=== PATIENT | male | born 1935 | race Caucasian/White ===

== ENCOUNTER 2018-02-07 07:03 | Inpatient (IN) ==
--- NOTE | 2018-02-07 07:13 | Emergency Department Note ---
Disposition Clinical Impression: Elevated INR, Generalized weakness Community acquired pneumonia Qualifiers: Laterality: right Lung location: upper lobe of lung Qualified Code(s): J18.1 - Lobar pneumonia, unspecified organism Disposition: Admitted As Inpatient Condition: Fair Referrals: Chance Vallejo DO [Primary Care Provider] - Time of Disposition: 09:27 General Adult HPI - General Stated complaint: Fever, General illness Time Seen by Provider: 02/07/18 07:10 Source: patient, EMS Limitations: no limitations Nursing Notes Reviewed: Yes Vital Signs Reviewed: Yes - History of Present Illness HPI Narrative: 82-year-old male presents from home via EMS for evaluation of nausea, decreased by mouth intake, generalized weakness. Onset one week ago with mild weakness which has been progressive. For the past 2-3 days, he has had nausea and has been unable to tolerate any by mouth intake. Additionally, during his last 2-3 days, he has had loose stools. 2-3 episodes per day with blood which ranges from spotting on the toilet tissue to 'filling to bowel.' He has no abdominal pain with his bowel movements. He has no abdominal pain when he is not vomiting. He denies fever. He correlates the onset of his symptoms with the administration of a hepatitis A vaccine. PMH: Lymphoma. 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 Enlarged spleen. Hx CAD with ACS s/p remote stent. No pulmonary history. ROS: Positive: As above Negative: Fever, chills, chest pain, palpitations, dyspnea, diaphoresis, headache, lightheadedness, numbness/tingling/weakness. Pain Scale: 0 - Related Data Home Medications Medication Instructions Recorded Confirmed Losartan/HCTZ [Hyzaar 50-12.5 1 tab PO DAILY 10/09/15 02/17/17 Tablet] Saw [place] 500 mg PO DAILY 10/09/15 02/17/17 Previous Rx's Medication Instructions Recorded Warfarin [Coumadin] 1 tab PO 1800 #30 tablet 07/16/16 Ferrous Sulfate [Iron] 1 tab PO BID #60 tablet 08/23/16 Folic Acid 1 tab PO DAILY #90 tablet 08/23/16 Haemophilus B Polysacch Vacc 10 mcg IM ONCE #1 mls 08/27/16 [ActHIB Vaccine (w diluent)] Meningo P Vac A,C,Y,W-135 Diph 0.5 ml IM AD #1 vial 08/27/16 [Menactra] N.meningitidis B,Lipid Fhbp Rc 120 mcg IM AD #3 mls 08/27/16 [Trumenba] Allergies Allergy/AdvReac Type Severity Reaction Status Date / Time iodine Allergy blisters Verified 08/20/17 11:01 Penicillins Allergy unknown Verified 08/20/17 11:01 All systems ED: reviewed and negative except as stated. Review of Systems: As Per HPI Past Medical History - Past Medical History Medical history: Reports: cancer Surgical history: Reports: angioplasty/stent, cholecystectomy, knee replacement , other Psychiatric history: Reports: no psych history - Social History Smoking Status: Former smoker Smokeless Tobacco Status: No Alcohol use: Reports: none Drug use: Reports: none Physical Exam Vital Signs Reviewed General: Patient is alert, oriented. He appears pale and tired but otherwise appears younger than stated age. Head: atraumatic, normocephalic Eye: normal appearance, PERRL, no scleral icterus, no conjunctival injection ENT: mucous membranes moist, normal external ear exam Neck: normal inspection, trachea midline, full ROM Chest: normal inspection, symmetric chest rise Respiratory: Good respiratory effort. Bilateral breath sounds are clear without wheezing, crackles, or rhonchi. Cardiovascular: Regular rate and rhythm. No clicks, rubs, gallops, or murmors. Normal heart sounds. Abdomen: Bowel sounds present normoactive x-4 quadrants. Abdomen is soft, nondistended, and nontender. No guarding or rebound. No organomegaly noted. Rectal exam: Telephone Order Clerk Room Service present appropriate rectal tone. No evidence of hemorrhoid. No gross blood on glove fingertip. FOBT submitted. Musculoskeletal: Spontaneously moving all extremities. Skin: warm, dry, intact. Neuro: Alert and oriented x4. Sensation light touch intact. Psych: Patient's affect is appropriate for situation. - General Limitations: no limitations General appearance: alert, in no apparent distress Course Course Narrative: Chest x-ray concerning for right-sided pneumonia. Serum hematology shows mild anemia which is the patient's baseline. No leukocytosis or leukocytopenia. Serum chemistry does show slight elevation in troponin of 0.04. This is in a setting of mild chronic kidney disease; patient's creatinine no elevators at his baseline. Clinically suspect a component of demand ischemia. No ischemic changes on EKG. Patient has no chest pain. We will begin empiric ceftriaxone and azithromycin. Patient's INR is slightly supratherapeutic. FOBT is negative. Hemoglobin is at his baseline. I discussed the above with the admitting hospitalist, Dr. Villarreal , who agrees to accept the patient for community-acquired pneumonia, elevated INR, generalized weakness I discussed the above extensively with the patient, his son, and daughter at bedside. I spent approximately 15-20 minutes discussing multiple aspects of the patient's emergency department evaluation and answered all of their questions with explanations when appropriate. EKG dated 02/07/18 at 07:43 interpreted as sinus rhythm with rate of 89. SD 167 , QRS 101, QTC 393. Normal axis. Flattened T-wave in lead V2 otherwise nonspecific ST-T changes. Compared to previous EKG dated 11/17/2015 showing no acute ischemic changes comparison. Chest X-Ray 02/07/18 07:33 IMPRESSION: 1. Right infrahilar opacity potentially representing pneumonia, mass, or hilar lymphadenopathy. Consider further evaluation with a contrast-enhanced chest CT. 2. Airspace opacities in the mid to lower left lung, potentially pneumonia, asymmetric edema, and/or atelectasis. 3. Minimal right basilar atelectasis. 4. Pulmonary vascular congestion and/or chronic interstitial change. D/ / Siddhartha Yuan MD / Siddhartha Yuan MD Interpreting Provider: Siddhartha Yuan MD Vital Signs Temperature 99.1 F 02/07/18 07:05 Pulse Rate 82 02/07/18 07:05 Respiratory Rate 20 02/07/18 07:05 Blood Pressure 170/78 02/07/18 07:05 O2 Sat by Pulse Oximetry 98 02/07/18 07:05 Temperature 99.1 F 02/07/18 07:05 Pulse Rate 82 02/07/18 07:05 Respiratory Rate 20 02/07/18 07:05 Blood Pressure 170/78 02/07/18 07:05 O2 Sat by Pulse Oximetry 98 02/07/18 07:05 Oxygen Delivery Oxygen Delivery Room Air Medical Decision Making - Lab Data Result diagrams: 02/07/18 07:56 06/30/18 07:56 Lab Results 02/07/18 02/07/18 02/07/18 Range/Units 07:55 07:56 07:56 WBC (4.3-11.1) K/mcL RBC (4.19-5.50) M/mcL Hgb (12.9-16.9) g/dL Hct (37.5-50.1) % MCV (83.0-100.0) fL MCH (28.0-33.3) pg MCHC (31.6-35.5) g/dL RDW (11.5-14.5) % Plt Count (140-400) K/mcL MPV (9.4-12.4) fL Immature Gran % (0-4) % Seg Neutrophils % % Lymphocytes % % Monocytes % % Eosinophils % % Basophils % % Neutrophils # (1.6-8.9) K/mcL Lymphocytes # (0.6-4.6) K/mcL Monocytes # (0.0-1.3) K/mcL Eosinophils # (0.0-0.6) K/mcL Basophils # (0.0-0.2) K/mcL PT 42.9 H (9.4-12.1) Seconds INR 3.8 APTT 33.5 (26.0-36.0) Seconds Sodium 137 (136-145) mEq/L Potassium 3.9 (3.5-5.1) mEq/L Chloride 106 (98-107) mEq/L Carbon Dioxide 20 L (23-29) mEq/L BUN 33 H (8-23) mg/dL Creatinine 1.69 H (0.70-1.30) mg/dL Est GFR ( Amer) 47 L (> 60) Est GFR (Non-Af Amer) 39 L (> 60) BUN/Creatinine Ratio 20 (6-26) Glucose 169 H (70-105) mg/dL Calculated Osmolality 295 (280-300) Calcium 9.0 (8.6-10.3) mg/dL Phosphorus 2.5 L (2.7-4.5) mg/dL Magnesium 1.9 (1.6-2.6) mg/dL Total Bilirubin 0.9 (0.3-1.0) mg/dL Direct Bilirubin 0.3 H (0.0-0.2) mg/dL Indirect Bilirubin 0.6 (0.0-1.2) mg/dL AST 17 (13-39) Units/L ALT 24 (7-52) Units/L Alkaline Phosphatase 67 (34-104) Units/L Troponin I 0.04 H* (< 0.04) ng/mL Serum Total Protein 6.5 (6.4-8.9) g/dL Albumin 3.9 (3.5-5.7) g/dL Globulin 2.6 (2.4-3.5) g/dL Albumin/Globulin Ratio 1.5 (1.1-2.2) Urine Color (Yellow) Urine Clarity (Clear) Urine pH (5.0-8.0) pH Units Ur Specific [place] (1.010-1.025) Urine Protein (Neg-Trace) mg/dL Urine Glucose (UA) (Normal) mg/dL Urine Ketones (Negative) mg/dL Urine Blood (Negative) Urine Nitrite (Negative) Urine Bilirubin (Negative) Urine Urobilinogen (Normal) mg/dL Ur Leukocyte Esterase (Negative) Urine Microscopic RBC (0-3) per hpf Urine Microscopic WBC (0-3) per hpf Ur Squamous Epith Cells (None-Few) per lpf Urine Bacteria (None-Few) per hpf Hyaline Casts (None-Few) per lpf Ur Culture Indicated? (NO) Stool Occult Blood Negative (Negative) 02/07/18 02/07/18 Range/Units 07:56 08:07 WBC 5.2 (4.3-11.1) K/mcL RBC 4.05 L (4.19-5.50) M/mcL Hgb 11.8 L (12.9-16.9) g/dL Hct 35.0 L (37.5-50.1) % MCV 86.4 (83.0-100.0) fL MCH 29.1 (28.0-33.3) pg MCHC 33.7 (31.6-35.5) g/dL RDW 13.2 (11.5-14.5) % Plt Count 89 L (140-400) K/mcL MPV 9.2 L (9.4-12.4) fL Immature Gran % 0.8 (0-4) % Seg Neutrophils % 57.8 % Lymphocytes % 34.3 % Monocytes % 6.9 % Eosinophils % 0.0 % Basophils % 0.2 % Neutrophils # 3.0 (1.6-8.9) K/mcL Lymphocytes # 1.8 (0.6-4.6) K/mcL Monocytes # 0.4 (0.0-1.3) K/mcL Eosinophils # 0.0 (0.0-0.6) K/mcL Basophils # 0.0 (0.0-0.2) K/mcL PT (9.4-12.1) Seconds INR APTT (26.0-36.0) Seconds Sodium (136-145) mEq/L Potassium (3.5-5.1) mEq/L Chloride (98-107) mEq/L Carbon Dioxide (23-29) mEq/L BUN (8-23) mg/dL Creatinine (0.70-1.30) mg/dL Est GFR ( Amer) (> 60) Est GFR (Non-Af Amer) (> 60) BUN/Creatinine Ratio (6-26) Glucose (70-105) mg/dL Calculated Osmolality (280-300) Calcium (8.6-10.3) mg/dL Phosphorus (2.7-4.5) mg/dL Magnesium (1.6-2.6) mg/dL Total Bilirubin (0.3-1.0) mg/dL Direct Bilirubin (0.0-0.2) mg/dL Indirect Bilirubin (0.0-1.2) mg/dL AST (13-39) Units/L ALT (7-52) Units/L Alkaline Phosphatase (34-104) Units/L Troponin I (< 0.04) ng/mL Serum Total Protein (6.4-8.9) g/dL Albumin (3.5-5.7) g/dL Globulin (2.4-3.5) g/dL Albumin/Globulin Ratio (1.1-2.2) Urine Color Yellow (Yellow) Urine Clarity Clear (Clear) Urine pH 6.0 (5.0-8.0) pH Units Ur Specific [place] 1.023 (1.010-1.025) Urine Protein 30 H (Neg-Trace) mg/dL Urine Glucose (UA) Normal (Normal) mg/dL Urine Ketones Negative (Negative) mg/dL Urine Blood Negative (Negative) Urine Nitrite Negative (Negative) Urine Bilirubin Negative (Negative) Urine Urobilinogen Normal (Normal) mg/dL Ur Leukocyte Esterase Negative (Negative) Urine Microscopic RBC 3-5 H (0-3) per hpf Urine Microscopic WBC 0-3 (0-3) per hpf Ur Squamous Epith Cells Many H (None-Few) per lpf Urine Bacteria None Seen (None-Few) per hpf Hyaline Casts None Seen (None-Few) per lpf Ur Culture Indicated? NO (NO) Stool Occult Blood (Negative)
[2018-02-07] MEDS ORDERED: 0.9 % Sodium Chloride 1,000 ML IVC ONE (07:32)
[2018-02-07 08:08] LABS: Basophils % 0.2 %; Hemoglobin 11.8 g/dL (12.9-16.9); Immature Granulocytes % 0.8 % (0-4); Lymphocytes # 1.8 K/mcL (0.6-4.6); Lymphocytes % 34.3 %; Mean Corpuscular HGB Conc 33.7 g/dL (31.6-35.5); Mean Corpuscular Hemoglobin 29.1 pg (28.0-33.3); Mean Corpuscular Volume 86.4 fL (83.0-100.0); Mean Platelet Volume 9.2 fL (9.4-12.4); Monocytes # 0.4 K/mcL (0.0-1.3); Monocytes % 6.9 %; Red Blood Count 4.05 M/mcL (4.19-5.50); Red Cell Distribution Width 13.2 % (11.5-14.5); Segmented Neutrophils % 57.8 %
[2018-02-07 08:09] LABS: Platelet Count 89 K/mcL (140-400)
[2018-02-07 08:15] LABS: INR 3.8; Prothrombin Time 42.9 Seconds (9.4-12.1)
[2018-02-07 08:18] LABS: Activated Partial Thrombo Time 33.5 Seconds (26.0-36.0)
[2018-02-07 08:20] LABS: Bilirubin,Urine Negative (Negative); Blood,Urine Negative (Negative); Clarity,Urine Clear (Clear); Color,Urine Yellow (Yellow); Glucose,Urine (UA) Normal (Normal); Ketones,Urine Negative (Negative); Leukocyte Esterase,Urine Negative (Negative); Nitrite,Urine Negative (Negative); Protein,Urine 30 mg/dL (Neg-Trace); Specific Gravity,Urine 1.023 (1.010-1.025); Urobilinogen,Urine Normal (Normal)
[2018-02-07 08:22] LABS: Bacteria,Urine None Seen per hpf (None-Few); Hyaline Casts,Urine None Seen per lpf (None-Few); Squamous Epithelial Cell,Urine Many per lpf (None-Few); WBC,Urine 0-3 per hpf (0-3)
[2018-02-07 08:28] LABS: Albumin 3.9 g/dL (3.5-5.7); Albumin/Globulin Ratio 1.5 (1.1-2.2); Bilirubin,Direct 0.3 mg/dL (0.0-0.2); Bilirubin,Indirect 0.6 mg/dL (0.0-1.2); Bilirubin,Total 0.9 mg/dL (0.3-1.0); Globulin 2.6 g/dL (2.4-3.5); Magnesium 1.9 mg/dL (1.6-2.6); Phosphorous 2.5 mg/dL (2.7-4.5); Potassium 3.9 mEq/L (3.5-5.1); Total Protein 6.5 g/dL (6.4-8.9)
[2018-02-07 08:29] LABS: Troponin I 0.04 ng/mL (< 0.04)
--- NOTE | 2018-02-07 09:16 | Emergency Department Note ---
Disposition Clinical Impression: Elevated INR, Generalized weakness Community acquired pneumonia Qualifiers: Laterality: right Lung location: upper lobe of lung Qualified Code(s): J18.1 - Lobar pneumonia, unspecified organism Disposition: Admitted As Inpatient Condition: Fair General Adult HPI - General Chief complaint: ED General Medical Stated complaint: Fever, General illness Time Seen by Provider: 02/07/18 07:10 Source: patient, EMS Limitations: no limitations Nursing Notes Reviewed: Yes Vital Signs Reviewed: Yes - History of Present Illness Pain Scale: 0 - Related Data Home Medications Medication Instructions Recorded Confirmed Losartan/HCTZ [Hyzaar 50-12.5 1 tab PO DAILY 10/09/15 02/17/17 Tablet] Saw [place] 500 mg PO DAILY 10/09/15 02/17/17 Previous Rx's Medication Instructions Recorded Warfarin [Coumadin] 1 tab PO 1800 #30 tablet 07/16/16 Ferrous Sulfate [Iron] 1 tab PO BID #60 tablet 08/23/16 Folic Acid 1 tab PO DAILY #90 tablet 08/23/16 Haemophilus B Polysacch Vacc 10 mcg IM ONCE #1 mls 08/27/16 [ActHIB Vaccine (w diluent)] Meningo P Vac A,C,Y,W-135 Diph 0.5 ml IM AD #1 vial 08/27/16 [Menactra] N.meningitidis B,Lipid Fhbp Rc 120 mcg IM AD #3 mls 08/27/16 [Trumenba] Allergies Allergy/AdvReac Type Severity Reaction Status Date / Time iodine Allergy blisters Verified 08/20/17 11:01 Penicillins Allergy unknown Verified 08/20/17 11:01 Past Medical History - Past Medical History Medical history: Reports: cancer Surgical history: Reports: angioplasty/stent, cholecystectomy, knee replacement , other Psychiatric history: Reports: no psych history - Social History Smoking Status: Former smoker Smokeless Tobacco Status: No Alcohol use: Reports: none Drug use: Reports: none Physical Exam - General Limitations: no limitations General appearance: alert, in no apparent distress Course Vital Signs Temperature 99.1 F 02/07/18 07:05 Pulse Rate 82 02/07/18 07:05 Respiratory Rate 20 02/07/18 07:05 Blood Pressure 170/78 02/07/18 07:05 O2 Sat by Pulse Oximetry 98 02/07/18 07:05 Temperature 99.1 F 02/07/18 07:05 Pulse Rate 82 02/07/18 07:05 Respiratory Rate 20 02/07/18 07:05 Blood Pressure 170/78 02/07/18 07:05 O2 Sat by Pulse Oximetry 98 02/07/18 07:05 Oxygen Delivery Oxygen Delivery Room Air Medical Decision Making - Medical Records Medical records reviewed: Yes I reviewed the patient's medical records. - Lab Data Lab results reviewed: Yes I reviewed the patient's lab results. Result diagrams: 02/07/18 07:56 02/07/18 07:56 Lab Results 02/07/18 02/07/18 02/07/18 Range/Units 07:55 07:56 07:56 WBC (4.3-11.1) K/mcL RBC (4.19-5.50) M/mcL Hgb (12.9-16.9) g/dL Hct (37.5-50.1) % MCV (83.0-100.0) fL MCH (28.0-33.3) pg MCHC (31.6-35.5) g/dL RDW (11.5-14.5) % Plt Count (140-400) K/mcL MPV (9.4-12.4) fL Immature Gran % (0-4) % Seg Neutrophils % % Lymphocytes % % Monocytes % % Eosinophils % % Basophils % % Neutrophils # (1.6-8.9) K/mcL Lymphocytes # (0.6-4.6) K/mcL Monocytes # (0.0-1.3) K/mcL Eosinophils # (0.0-0.6) K/mcL Basophils # (0.0-0.2) K/mcL PT 42.9 H (9.4-12.1) Seconds INR 3.8 APTT 33.5 (26.0-36.0) Seconds Sodium 137 (136-145) mEq/L Potassium 3.9 (3.5-5.1) mEq/L Chloride 106 (98-107) mEq/L Carbon Dioxide 20 L (23-29) mEq/L BUN 33 H (8-23) mg/dL Creatinine 1.69 H (0.70-1.30) mg/dL Est GFR ( Amer) 47 L (> 60) Est GFR (Non-Af Amer) 39 L (> 60) BUN/Creatinine Ratio 20 (6-26) Glucose 169 H (70-105) mg/dL Calculated Osmolality 295 (280-300) Calcium 9.0 (8.6-10.3) mg/dL Phosphorus 2.5 L (2.7-4.5) mg/dL Magnesium 1.9 (1.6-2.6) mg/dL Total Bilirubin 0.9 (0.3-1.0) mg/dL Direct Bilirubin 0.3 H (0.0-0.2) mg/dL Indirect Bilirubin 0.6 (0.0-1.2) mg/dL AST 17 (13-39) Units/L ALT 24 (7-52) Units/L Alkaline Phosphatase 67 (34-104) Units/L Troponin I 0.04 H* (< 0.04) ng/mL Serum Total Protein 6.5 (6.4-8.9) g/dL Albumin 3.9 (3.5-5.7) g/dL Globulin 2.6 (2.4-3.5) g/dL Albumin/Globulin Ratio 1.5 (1.1-2.2) Urine Color (Yellow) Urine Clarity (Clear) Urine pH (5.0-8.0) pH Units Ur Specific [place] (1.010-1.025) Urine Protein (Neg-Trace) mg/dL Urine Glucose (UA) (Normal) mg/dL Urine Ketones (Negative) mg/dL Urine Blood (Negative) Urine Nitrite (Negative) Urine Bilirubin (Negative) Urine Urobilinogen (Normal) mg/dL Ur Leukocyte Esterase (Negative) Urine Microscopic RBC (0-3) per hpf Urine Microscopic WBC (0-3) per hpf Ur Squamous Epith Cells (None-Few) per lpf Urine Bacteria (None-Few) per hpf Hyaline Casts (None-Few) per lpf Ur Culture Indicated? (NO) Stool Occult Blood Negative (Negative) 02/07/18 02/07/18 Range/Units 07:56 08:07 WBC 5.2 (4.3-11.1) K/mcL RBC 4.05 L (4.19-5.50) M/mcL Hgb 11.8 L (12.9-16.9) g/dL Hct 35.0 L (37.5-50.1) % MCV 86.4 (83.0-100.0) fL MCH 29.1 (28.0-33.3) pg MCHC 33.7 (31.6-35.5) g/dL RDW 13.2 (11.5-14.5) % Plt Count 89 L (140-400) K/mcL MPV 9.2 L (9.4-12.4) fL Immature Gran % 0.8 (0-4) % Seg Neutrophils % 57.8 % Lymphocytes % 34.3 % Monocytes % 6.9 % Eosinophils % 0.0 % Basophils % 0.2 % Neutrophils # 3.0 (1.6-8.9) K/mcL Lymphocytes # 1.8 (0.6-4.6) K/mcL Monocytes # 0.4 (0.0-1.3) K/mcL Eosinophils # 0.0 (0.0-0.6) K/mcL Basophils # 0.0 (0.0-0.2) K/mcL PT (9.4-12.1) Seconds INR APTT (26.0-36.0) Seconds Sodium (136-145) mEq/L Potassium (3.5-5.1) mEq/L Chloride (98-107) mEq/L Carbon Dioxide (23-29) mEq/L BUN (8-23) mg/dL Creatinine (0.70-1.30) mg/dL Est GFR ( Amer) (> 60) Est GFR (Non-Af Amer) (> 60) BUN/Creatinine Ratio (6-26) Glucose (70-105) mg/dL Calculated Osmolality (280-300) Calcium (8.6-10.3) mg/dL Phosphorus (2.7-4.5) mg/dL Magnesium (1.6-2.6) mg/dL Total Bilirubin (0.3-1.0) mg/dL Direct Bilirubin (0.0-0.2) mg/dL Indirect Bilirubin (0.0-1.2) mg/dL AST (13-39) Units/L ALT (7-52) Units/L Alkaline Phosphatase (34-104) Units/L Troponin I (< 0.04) ng/mL Serum Total Protein (6.4-8.9) g/dL Albumin (3.5-5.7) g/dL Globulin (2.4-3.5) g/dL Albumin/Globulin Ratio (1.1-2.2) Urine Color Yellow (Yellow) Urine Clarity Clear (Clear) Urine pH 6.0 (5.0-8.0) pH Units Ur Specific [place] 1.023 (1.010-1.025) Urine Protein 30 H (Neg-Trace) mg/dL Urine Glucose (UA) Normal (Normal) mg/dL Urine Ketones Negative (Negative) mg/dL Urine Blood Negative (Negative) Urine Nitrite Negative (Negative) Urine Bilirubin Negative (Negative) Urine Urobilinogen Normal (Normal) mg/dL Ur Leukocyte Esterase Negative (Negative) Urine Microscopic RBC 3-5 H (0-3) per hpf Urine Microscopic WBC 0-3 (0-3) per hpf Ur Squamous Epith Cells Many H (None-Few) per lpf Urine Bacteria None Seen (None-Few) per hpf Hyaline Casts None Seen (None-Few) per lpf Ur Culture Indicated? NO (NO) Stool Occult Blood (Negative) - Radiology Data Radiology results reviewed: Yes I reviewed the patient's radiology results. Chest X-Ray 02/07/18 07:33 IMPRESSION: 1. Right infrahilar opacity potentially representing pneumonia, mass, or hilar lymphadenopathy. Consider further evaluation with a contrast-enhanced chest CT. 2. Airspace opacities in the mid to lower left lung, potentially pneumonia, asymmetric edema, and/or atelectasis. 3. Minimal right basilar atelectasis. 4. Pulmonary vascular congestion and/or chronic interstitial change. D/ / Siddhartha Yuan MD / Siddhartha Yuan MD Interpreting Provider: Siddhartha Yuan MD - EKG Data EKG #1 EKG attestation: Yes I reviewed and interpreted this EKG. EKG results narrative: 6 EKG shows a normal sinus rhythm with occasional PVC. Ventricular rate 89. No acute ST segment elevation or depression Critical Care Time Critical Care Time: Yes Total Critical Care Time: 35 Attestation: Critical care performed: Time is exclusive of separately billable procedures. Time includes: direct patient care, patient reassessment, coordination of patient care, interpretation of data (laboratory data, radiology data, and respiratory data), review of patient's medical records, medical consultation and documentation of patient care. Procedures included in critical care time: Procedures excluded from critical care time: Attestation Statement - Attestation Attestation: I, Rupesh Castillo MD, personally evaluated this patient and discussed their management with the resident physician. I reviewed the resident's note and agree with the documented findings, medical decision making, and plan of care. 82-year-old male presents to the emergency department with a complaint of increasing generalized weakness over the past week since he got a hepatitis vaccination. He complains of some chills and subjective fever. Some increased cough. Some nausea and vomiting. Some diarrhea. Patient is on Coumadin for chronic DVT. He thinks there is been some intermittent streaks of blood in the stool. Denies any chest pain or abdominal pain. On examination patient is a well-developed well-nourished elderly male in no acute distress. He is alert and oriented 3. There is no cyanosis or diaphoresis. Breath sounds are equal bilaterally with a few left mid lung rales laterally. No wheezes noted. Heart regular rate and rhythm. Abdomen soft and nontender with normal bowel sounds. Labs reviewed. Chest x-ray shows: Right infrahilar opacity potentially representing pneumonia, mass, or hilar lymphadenopathy. Consider further evaluation with a contrast-enhanced chest CT. 2. Airspace opacities in the mid to lower left lung, potentially pneumonia, asymmetric edema, and/or atelectasis. Blood cultures obtained and antibiotics initiated. The hospitalist, Dr. Villarreal, was consulted and accepted admission of the patient.
[2018-02-07] MEDS ORDERED: cefTRIAXone 2,000 MG in 0.9 % Sodium Chloride Mini Bag 100 ML IVPB ONE (09:20)
[2018-02-07] MEDS ORDERED: Azithromycin 500 MG in D5% in Water 250 ML IVPB ONE (09:21)
[2018-02-07] MEDS ORDERED: Aspirin 81 MG TAB.CHEW PO ONE (09:22)
[2018-02-07] MEDS ORDERED: Ondansetron 4 MG/2 ML VIAL IVP ONE (09:30)
[2018-02-07] MEDS ORDERED: Naloxone 0.4 MG/ML INJ IVP PRN (10:20)
[2018-02-07] MEDS ORDERED: Acetaminophen 325 MG TABLET PO PRN (10:20)
[2018-02-07] MEDS ORDERED: Azithromycin 250 MG TABLET PO SCH (10:30)
[2018-02-07] MEDS ORDERED: Nitroglycerin 0.4 MG TAB.SUBL SL PRN (10:34)
--- NOTE | 2018-02-07 10:43 | Internal Med History&Physical ---
Date of Encounter: 02/07/18 Time of Encounter: 10:00 Internal Medicine - H&P: HPI Chief complaint: Generalized weakness Admitted From: Home Plans for Post Hospital Care: Transfer Half-Way Facility History of present illness: Mr. Naidu is a 82 year old male presented to the emergency department with nausea vomiting, generalized weakness, and decreased oral intake. He is been feeling weak and getting worse for the last few days. He had worsening nausea and he vomited and not able to eat. He denied any diarrhea and loose stools. He denies any chest pain. Has been having progressive shortness of breath. No headache no blurry vision or double vision no urinary problems. . Past Med Surg Social Fam HX - Past Medical History Medical history: cancer Additional medical history: Lymphoma. Enlarged Spleen Psychiatric history: no psych history - Past Surgical History Surgical History: angioplasty/stent, cholecystectomy, knee replacement, other Additional surgical history: inguinal hernia repair, laminectomy, back surgery , cardiac stents x 2 - Social History Smoking Status: Former smoker Smokeless Tobacco Status: No Alcohol use: none Drug use: none - Family History Brother Hx Family Cancer: Yes (DVTs) Mother Family Member Ethnicity: Non- Living Status: Hx Family Cardiac Disorders: No Hx Family Respiratory Disorders: No Hx Family Cancer: Yes (Lung Cancer) Hx Family GI Disorders: No Hx Family Endocrine Disorder: No Hx Family Neuromuscular Disorders: No Hx Family Neurologic Disorders: No Hx Family HEENT Disorders: No Hx Family Autoimmune Disorders: No Internal Medicine - H&P: Meds Cyanocobalamin (Vitamin B-12) [Vitamin B-12] 1,000 mcg PO DAILY 02/07/18 [ History] Ferrous Sulfate [Iron] 325 mg PO DAILY 02/07/18 [History] Folic Acid 1 mg PO DAILY 02/07/18 [History] Losartan/Hydrochlorothiazide [Losartan-Hctz 100-12.5 mg Tab] 1 tab PO DAILY [History] Turmeric Root Extract [Turmeric] 500 mg PO DAILY 02/07/18 [History] Warfarin [Coumadin] 2.5 mg PO MOWEFR 02/07/18 [History] Warfarin [Coumadin] 5 mg PO SUTUTHSA 02/07/18 [History] 3 Allergy/AdvReac Type Severity Reaction Status Date / Time iodine Allergy blisters Verified 02/07/18 10:03 Penicillins Allergy See Verified 02/07/18 10:03 Comments All Systems PM: A 10-system review of systems was performed and is negative for pertinent findings except as documented above in the HPI. - Constitutional Vitals: Temp Pulse Resp BP Pulse Ox 99.1 F 82 20 150/87 98 02/07/18 07:05 02/07/18 07:05 02/07/18 10:08 02/07/18 10:08 02/07/18 07:05 - Head Head exam: Present: atraumatic, normocephalic - Eye Eye exam: Present: PERRL, conjuntiva pink, sclera anicteric Pupils: Present: PERRL - Neck Neck exam general surgery: Present: supple, trachea midline. Absent: lymphadenopathy - Respiratory Additional comments: Diminished bibasilarly - Cardiovascular Cardiovascular exam: Present: RRR, +S1, +S2. Absent: diastolic murmur, gallop, rubs, systolic murmur - GI/Abdominal GI/Abdominal exam: Present: normal bowel sounds, soft, no peritoneal signs. Absent: distended, tenderness - Extremities Exam Extremities exam: Present: warm, radial pulses palpable and symmetrical. Absent : calf tenderness, cyanotic, pedal edema - Neurological Exam Neurological exam: Present: CN II-XII intact, oriented X3, no focal deficits. Absent: pronater drift, facial droop, speech deficit - Skin Skin exam: Present: dry, intact Internal Med - H&P Results - Labs CBC & Chem 7: 02/07/18 07:56 02/07/18 07:56 - Assessment and plan (1) Pneumonia Current Visit: Yes Status: Acute Assessment and plan: Antibiotics with Rocephin and azithromycin Blood culture, sputum culture, Legionella and pneumococcal antigen before antibiotics administration Breathing treatment every 6 hours when necessary Antiemetics when necessary Tylenol when necessary Oxygen as per protocol to keep O2 saturation above 92% Follow culture results Patient may need to get a CT chest when clinically improving and kidney function improved to rule out any possible underlying mass Qualifiers: Qualified Code(s): J18.9 - Pneumonia, unspecified organism (2) Acute kidney injury Current Visit: Yes Status: Acute Assessment and plan: Due to dehydration, and ACEi/HCTZ -hold for now Gentle IV hydration Monitor kidney function tests. Avoid nephrotoxic agents (3) Troponin I above reference range Current Visit: Yes Status: Acute Assessment and plan: Cycle troponin every 6 hours for 3 sets Patient denied any chest pain or any cardiac history Continue his aspirin, metoprolol, statin, and nitrates when necessary We did an echocardiogram for further evaluation of the heart structure and function Fasting lipid profile. EKG in the morning (4) Dehydration Current Visit: Yes Status: Acute Assessment and plan: Continue IV hydration as above (5) Hypophosphatemia Current Visit: Yes Status: Acute Assessment and plan: Mild low phosphate -replace Monitor and replace electrolytes as needed (6) Recurrent deep vein thrombosis (DVT) Current Visit: No Status: Acute Assessment and plan: On anticoagulation with Coumadin INR supratherapeutic today -Hold Coumadin and follow INR Pharmacy to manage (7) On esomeprazole prophylaxis Current Visit: Yes Status: Acute (8) DVT prophylaxis Current Visit: Yes Status: Acute Assessment and plan: Already anticoagulated with Coumadin - Time Spent With Patient Total time spent is greater than 50% in coordination of care (as documented) at patient's floor/unit and/or counseling patient:
[2018-02-07] MEDS: 0.9 % Sodium Chloride 1,000 ML IVC SCH (11:49)
[2018-02-07] MEDS: Folic Acid 1 MG TABLET PO SCH (12:09)
[2018-02-07] MEDS: Ondansetron 4 MG/2 ML VIAL IVP PRN ×2 (15:44→22:50)
[2018-02-07] MEDS ORDERED: Warfarin perPT PO PRN (18:00)
[2018-02-08] MEDS ORDERED: Acetaminophen 325 MG TABLET PO PRN (01:34)
[2018-02-08 02:01] LABS: Hematocrit 30.4 % (37.5-50.1); Immature Granulocytes % 0.8 % (0-4); Lymphocytes % 38.8 %; Mean Corpuscular HGB Conc 32.9 g/dL (31.6-35.5); Mean Corpuscular Hemoglobin 29.1 pg (28.0-33.3); Mean Corpuscular Volume 88.4 fL (83.0-100.0); Mean Platelet Volume 9.4 fL (9.4-12.4); Monocytes # 0.5 K/mcL (0.0-1.3); Monocytes % 8.8 %; Neutrophils # 2.7 K/mcL (1.6-8.9); Red Blood Count 3.44 M/mcL (4.19-5.50); Red Cell Distribution Width 13.4 % (11.5-14.5); Segmented Neutrophils % 51.6 %
[2018-02-08 02:03] LABS: Platelet Count 73 K/mcL (140-400)
[2018-02-08 02:04] LABS: INR 4.1
[2018-02-08 02:09] LABS: Prothrombin Time 46.7 Seconds (9.4-12.1)
[2018-02-08 02:22] LABS: Chol/HDL Ratio 7.4 (0-4.9); Magnesium 1.7 mg/dL (1.6-2.6); Phosphorous 2.7 mg/dL (2.7-4.5)
[2018-02-08 02:23] LABS: Albumin 3.5 g/dL (3.5-5.7); Albumin/Globulin Ratio 1.6 (1.1-2.2); Bilirubin,Total 0.7 mg/dL (0.3-1.0); Calcium 8.1 mg/dL (8.6-10.3); Globulin 2.2 g/dL (2.4-3.5); Total Protein 5.7 g/dL (6.4-8.9)
[2018-02-08] MEDS: 0.9 % Sodium Chloride 1,000 ML IVC SCH (04:16)
[2018-02-08] MEDS ORDERED: Acetaminophen IV 500 MG/50 ML INFUS..BTL IVPB ONE (06:48)
[2018-02-08] MEDS: Ondansetron 4 MG/2 ML VIAL IVP PRN (06:54)
[2018-02-08] MEDS ORDERED: *HR* Phytonadione 5 MG TABLET PO ONE (08:20)
[2018-02-08] MEDS ORDERED: 0.9 % Sodium Chloride 1,000 ML IVC ONE (08:21)
[2018-02-08] MEDS: Folic Acid 1 MG TABLET PO SCH (08:54)
[2018-02-08] MEDS ORDERED: Azithromycin 500 MG in D5% in Water 250 ML IVPB SCH (09:00)
[2018-02-08] MEDS ORDERED: (Turmeric Root Extract [Turmeric] 500 MG) PO SCH (09:00)
[2018-02-08] MEDS ORDERED: cefTRIAXone 2,000 MG in 0.9 % Sodium Chloride Mini Bag 100 ML IVPB SCH (09:00)
[2018-02-08] MEDS ORDERED: Cyanocobalamin (B-12) 1,000 MCG TABLET PO SCH (09:00)
[2018-02-08] MEDS ORDERED: cefTRIAXone 1,000 MG in Water for inj. (sterile) 20 ML 10 ML IVP SCH (09:00)
--- NOTE | 2018-02-08 10:16 | Internal Med Progress Note ---
Date of Encounter: 02/08/18 Time of Encounter: 10:14 - Assessment and plan (1) Severe sepsis Current Visit: Yes Status: Acute Assessment and plan: Patient met sepsis criteria on admission, with fevers, Tmax 103, RR 20, Confirmed PNA on chest xray and end organ damage-COLBY on CKD lactate is 1.5 this mrn UA is negative CXR with R sided PNA Chest CT done this mrn,pending official report, Blood and sputum culture pending Strep and Legionella Ag negative Source of sepsis is pna procalcitonin ordered, will follow continue ceftriacone and azithromycin follow final cultures (2) Acute on chronic kidney failure Current Visit: Yes Status: Acute Assessment and plan: Patient with CKD III, baseline Cr is 1.3-1.45 Presented with Cr o 1.69, nnow 1.78 this a.m Obtain renal USS He has a hx of BPH, r/o obstructive cause Continue IVF Strict I/Os Avoid nephrotoxins Qualifiers: Acute renal failure type: unspecified Chronic kidney disease stage: stage 3 (moderate) Qualified Code(s): N17.9 - Acute kidney failure, unspecified; N18.3 - Chronic kidney disease, stage 3 (moderate) (3) Pneumonia Current Visit: Yes Status: Acute Assessment and plan: Increase ceftriaxone to 2g daily Continue Azithromycin O2 supplement prn, patient is not hypoxic nebs prn Qualifiers: Pneumonia type: due to unspecified organism Laterality: right Lung location: unspecified part of lung Qualified Code(s): J18.9 - Pneumonia, unspecified organism (4) DVT prophylaxis Current Visit: Yes Status: Acute Assessment and plan: INR currently supretherapeutic (5) Elevated INR Current Visit: Yes Status: Acute Assessment and plan: GIve one time dose of Vitamin K Continue to hold Coumadin Continue to monitor INR (6) Anemia Current Visit: Yes Status: Acute Assessment and plan: Chronic anemia Hb 10.0 Continue to monitor Qualifiers: Anemia type: iron deficiency Iron deficiency anemia type: chronic blood loss Qualified Code(s): D50.0 - Iron deficiency anemia secondary to blood loss (chronic) (7) Enlarged prostate with lower urinary tract symptoms (LUTS) Current Visit: Yes Status: Chronic Assessment and plan: Obtain renal USS Strict I and Os Qualifiers: Lower urinary tract symptom detail: unspecified Qualified Code(s): N40.1 - Benign prostatic hyperplasia with lower urinary tract symptoms (8) Recurrent deep vein thrombosis (DVT) Current Visit: Yes Status: Acute Assessment and plan: INR is supratherapeutic Vitamin K po Monitor INR goal is 2-3 - Time Spent With Patient Total time spent is greater than 50% in coordination of care (as documented) at patient's floor/unit and/or counseling patient: - Subjective Interval history: Seen and examined at the bedside Continues to have high fevers, Tmax 103. Patient is also shivering He denies any abdominal symptoms, no dysuria Patient met criteria for severe sepsis on admission he is not on any anti-psychotics or SSRIs - Constitutional Vitals: Temp Pulse Resp BP Pulse Ox 102.6 F H 75 19 128/67 93 02/08/18 07:52 02/08/18 07:52 02/08/18 07:52 02/08/18 07:52 02/08/18 07:52 General appearance: Present: mild distress (from fevers), A&O X 3, pleasant - Head Head exam: Present: atraumatic, normocephalic - Eye Eye exam: Present: PERRL, conjuntiva pink, sclera anicteric Pupils: Present: PERRL - Neck Neck exam general surgery: Present: supple, trachea midline. Absent: lymphadenopathy - Respiratory Respiratory exam: Present: rhonchi - Cardiovascular Cardiovascular exam: Present: RRR, +S1, +S2. Absent: diastolic murmur, gallop, rubs, systolic murmur - GI/Abdominal GI/Abdominal exam: Present: normal bowel sounds, soft, no peritoneal signs. Absent: distended, tenderness - Extremities Exam Additional comments: chronic venous stasis changes - Neurological Exam Neurological exam: Present: alert, CN II-XII intact, oriented X3, no focal deficits. Absent: pronater drift, facial droop, speech deficit - Skin Skin exam: Present: dry, intact Internal Medicine: Result - Labs CBC & Chem 7: 02/08/18 01:44 02/08/18 01:44 Labs: Short CBC 02/08/18 Range/Units 01:44 WBC 5.2 (4.3-11.1) K/mcL Hgb 10.0 L D (12.9-16.9) g/dL Hct 30.4 L (37.5-50.1) % Plt Count 73 L (140-400) K/mcL Neutrophils # 2.7 (1.6-8.9) K/mcL BMP 02/08/18 01:44 Sodium 134 L Potassium 4.0 Chloride 104 Carbon Dioxide 22 L BUN 32 H Creatinine 1.78 H Glucose 143 H Calcium 8.1 L Cardiac Enzymes 02/07/18 02/07/18 02/08/18 Range/Units 14:11 20:13 01:44 Troponin I 0.08 H* 0.10 H* 0.13 H* (< 0.04) ng/mL Liver Function 02/08/18 Range/Units 01:44 Total Bilirubin 0.7 (0.3-1.0) mg/dL AST 19 (13-39) Units/L ALT 26 (7-52) Units/L Alkaline Phosphatase 53 (34-104) Units/L Albumin 3.5 (3.5-5.7) g/dL - ABG Interpretation ABG results: PT/INR, D-dimer PT 46.7 Seconds (9.4-12.1) H* 02/08/18 01:44 Consult Discharge Plan - Plan Referrals: Chance Vallejo DO [Primary Care Provider] -
--- NOTE | 2018-02-08 10:16 | Electrophysiology Consult Note ---
Date of Encounter: 02/08/18 Time of Encounter: 10:14 Assessment and Plan (1) Troponin I above reference range Current Visit: Yes Status: Acute Type II SD secondary to ARF, dehydration and sepsis. DO not think this is ACS. Would treat conseratively and check echo. Discussion w patient/family: The assessment and plan as outlined above was discussed with the patient and/or family members who expressed understanding and agreement. All questions were answered. Thank you for involving us in the care of your patient. Please call with any questions. History of Present Illness Consult date: 02/08/18 Requesting physician: Liliana Villarreal Consult reason: Abnormal troponin Chief complaint: "I'm sick" History of present illness: Mr. Naidu is a 82 year old male with no previous cardiac history. He presents with nausea and poor appetite for several days. Denies any cardiac complaints. He has not had any chest pain or SOB. Troponin was checked as per usual and was mildy elevated. This is in the setting of possible GI illnesss and acute renal failure. I doubt ACS. Past Med Surg Social Fam HX - Past Medical History Medical history: cancer Additional medical history: Lymphoma. Enlarged Spleen Psychiatric history: no psych history - Past Surgical History Surgical History: angioplasty/stent, cholecystectomy, knee replacement, other Additional surgical history: inguinal hernia repair, laminectomy, back surgery , cardiac stents x 2 - Social History Smoking Status: Former smoker Smokeless Tobacco Status: No Alcohol use: none Drug use: none - Family History Brother Hx Family Cancer: Yes (DVTs) Mother Family Member Ethnicity: Non- Living Status: Hx Family Cardiac Disorders: No Hx Family Respiratory Disorders: No Hx Family Cancer: Yes (Lung Cancer) Hx Family GI Disorders: No Hx Family Endocrine Disorder: No Hx Family Neuromuscular Disorders: No Hx Family Neurologic Disorders: No Hx Family HEENT Disorders: No Hx Family Autoimmune Disorders: No Medications and Allergies Cyanocobalamin (Vitamin B-12) [Vitamin B-12] 1,000 mcg PO DAILY 02/07/18 [ History] Ferrous Sulfate [Iron] 325 mg PO DAILY 02/07/18 [History] Folic Acid 1 mg PO DAILY 02/07/18 [History] Losartan/Hydrochlorothiazide [Losartan-Hctz 100-12.5 mg Tab] 1 tab PO DAILY [History] Turmeric Root Extract [Turmeric] 500 mg PO DAILY 02/07/18 [History] Warfarin [Coumadin] 2.5 mg PO MOWEFR 02/07/18 [History] Warfarin [Coumadin] 5 mg PO SUTUTHSA 02/07/18 [History] 3 Allergy/AdvReac Type Severity Reaction Status Date / Time iodine Allergy blisters Verified 02/07/18 10:03 Penicillins Allergy See Verified 02/07/18 10:03 Comments All Systems Review: The remainder of the systems were reviewed and are negative Physical Examination Vital Signs, Last 4 Hours Temp Pulse Resp BP Pulse Ox 02/08/18 07:52 102.6 F H 75 19 128/67 93 02/08/18 07:25 93 02/08/18 07:00 102.4 F H General: Conversant, No Apparent Distress HEENT: Atraumatic, Normocephaly, Mucus Membranes Moist Neck: No JVD, Normal carotid pulses Cardiac: Reg Rate and Rhythm, Normal S1 and S2, No Murmur Lungs: Other (decreased at bases) Neuro: Alert and responsive, No focal deficits noted Abdomen: Soft, Non-Tender Skin: No rashes noted on visualized skin Musculoskeletal: No Chest Wall Tenderness Results 02/08/18 01:44 02/08/18 01:44 Lab Results 02/07/18 02/07/18 02/08/18 14:11 20:13 01:44 WBC Hgb Hct Plt Count INR Sodium Potassium Chloride Carbon Dioxide BUN Creatinine Glucose Calcium Magnesium Total Bilirubin AST ALT Alkaline Phosphatase Troponin I 0.08 H* 0.10 H* 0.13 H* 02/08/18 02/08/18 02/08/18 01:44 01:44 01:44 WBC 5.2 Hgb 10.0 L D Hct 30.4 L Plt Count 73 L INR Sodium 134 L Potassium 4.0 Chloride 104 Carbon Dioxide 22 L BUN 32 H Creatinine 1.78 H Glucose 143 H Calcium 8.1 L Magnesium 1.7 Total Bilirubin 0.7 AST 19 ALT 26 Alkaline Phosphatase 53 Troponin I 02/08/18 01:44 WBC Hgb Hct Plt Count INR 4.1 Sodium Potassium Chloride Carbon Dioxide BUN Creatinine Glucose Calcium Magnesium Total Bilirubin AST ALT Alkaline Phosphatase Troponin I - EKG Interpretation EKG results cardiology: other (No yet scanned) Consult Discharge Plan - Plan Referrals: Chance Vallejo DO [Primary Care Provider] -
[2018-02-08] MEDS ORDERED: Isovue-370 500 ML INFUS..BTL IV ONE (19:36)
[2018-02-08 19:42] LABS: ABG Base Excess -4 mEq/L (-2 to 3); ABG HCO3 18 mEq/L (21-27); ABG Oxygen Saturation 98 % (95-98); ABG PCO2 24 mmHg (35-45); ABG PH 7.48 pH Units (7.32-7.45); ABG PO2 89 mmHg (85-104); ABG TCO2 19 mEq/L (20-26)
[2018-02-08 20:48] VITALS: BP 149/82
[2018-02-08 20:54] LABS: INR 1.7; Prothrombin Time 19.3 Seconds (9.4-12.1)
[2018-02-08 21:00] LABS: Mean Corpuscular HGB Conc 34.1 g/dL (31.6-35.5); Mean Corpuscular Hemoglobin 29.9 pg (28.0-33.3)
[2018-02-08 21:02] LABS: Basophils % 0.1 %; Hematocrit 31.7 % (37.5-50.1); Hemoglobin 10.8 g/dL (12.9-16.9); Immature Granulocytes % 0.8 % (0-4); Immature Platelets 1.7 % (1.1-6.1); Mean Corpuscular Volume 87.8 fL (83.0-100.0); Monocytes # 0.5 K/mcL (0.0-1.3); Monocytes % 6.9 %; Neutrophils # 3.6 K/mcL (1.6-8.9); Red Blood Count 3.61 M/mcL (4.19-5.50); Red Cell Distribution Width 13.3 % (11.5-14.5); Segmented Neutrophils % 50.2 %
[2018-02-08 21:03] LABS: Platelet Count 78 K/mcL (140-400)
[2018-02-08 21:15] LABS: Potassium 3.6 mEq/L (3.5-5.1)
--- NOTE | 2018-02-08 21:15 | Event Note ---
Date of Encounter: 02/08/18 Time of Encounter: 21:01 1915 I was called to come and see the patient due to the patient having fevers, very weak, breathing different via voicera text. I asked for a abg to be done. I also Inquired about o2 saturation and current temp. Temp was 105. [id number] Upon arrival to the room, the patient was noted to have babbling speech, unable to follow commands, unaware of surroundings, and occasional expressive aphasia. Ct of the head ordered stat. The patient temp was 105 and cooling blankets were applied while I was in the room. I notified Dr. Gaxiola regarding findings, stroke alert was called. 1999 Dr Overton was paged to request ID consult regarding high fevers. Awaiting return call. Will place consult. (Please call ID in the am). 2002 Received return call from Dr. Carmen, informed him regarding patient findings and he indicated that he would consult. The patient was being transferred to the ED for stroke evaluation. He indicated that we should follow the recommendations given for the patient by the stroke lease analyst.
[2018-02-08 21:26] LABS: Troponin I 0.21 ng/mL (< 0.04)
--- NOTE | 2018-02-09 07:06 | Event Note ---
Date of Encounter: 02/08/18 Time of Encounter: 19:35 Patient seen at bedside for suspected stroke like symptoms. He has been having an elevated temperature of 103-105 for most of the day. He is now dysarthric, and can not form words. Stroke alert called,and patient taken to CT. No acute changes on CT scan. [facility] contacted and saw patient emmanuel telemedicine. TPA not given, as symptoms could be secondary to high temperature. The neurologist did have some concerns regarding right lower extremity weakness in the patient. Decision made to have patient sent to [facility] for further management of his symptoms , which should include infectious disease consult as well as neurology. He was transported by helecopter to [facility]. Of note, in the ER patient's temperature was 103.2, and he was starting to communicate better. He was able to understand commands, but still made babbling and gargling sounds with his mouth.
--- NOTE | 2018-02-09 17:59 | Electrocardiograph Report ---
[place] [address] Test Date: 2018-02-07 Pat Name: Cecil Naidu Department: 103 Room: 2A71 Gender: M Roller Maker: : 1935 Requested By: Shaheed Frias Order Number: [id number] Reading MD: Jose Chau Measurements Intervals [place] Rate: 89 P: 39 ND: 167 QRS: 0 QRSD: 101 T: 27 QT: 346 QTc: 393 Interpretive Statements SINUS RHYTHM Electronically Signed On 02-09-2018 17:58:04 EDT by Jose Chau
[2018-02-09] MEDS ORDERED: *HR* Warfarin 5 MG TABLET PO SCH (18:00)
--- NOTE | 2018-02-09 18:15 | Electrocardiograph Report ---
[place] [address] Test Date: 2018-02-07 Pat Name: Cecil Naidu Department: 111 Room: 2A71 Gender: M Gastroenterology Technician: : 1935 Requested By: Monet England Order Number: [id number] Reading MD: Jose Chau Measurements Intervals [place] Rate: 66 P: 19 [place]: 169 QRS: -7 QRSD: 101 T: 16 QT: 357 QTc: 371 Interpretive Statements SINUS RHYTHM MODERATE VOLTAGE CRITERIA FOR LVH, CONSIDER NORMAL VARIANT Electronically Signed On 02-09-2018 18:13:51 EDT by Jose Chau
--- NOTE | 2018-02-09 18:17 | Electrocardiograph Report ---
[address] [place] [address] Test Date: 2018-02-08 Pat Name: Cecil Naidu Department: 111 Room: 2A71 Gender: M [place] Archeology Professor: : 1935 Requested By: Osmani Minor Order Number: [id number] Reading MD: Jose Chau Measurements Intervals [place] Rate: 84 P: 53 [place]: 185 QRS: -5 QRSD: 91 T: 15 QT: 335 QTc: 376 Interpretive Statements SINUS RHYTHM INFERIOR MYOCARDIAL INFARCTION, PROBABLY OLD Electronically Signed On 02-09-2018 18:16:12 EDT by Jose Chau
--- NOTE | 2018-02-10 06:16 | Electrocardiograph Report ---
[place] [address] Test Date: 2018-02-08 Pat Name: Cecil Naidu Department: 103 Room: 2A Gender: M Dust Mop Maker: [facility] : 1935 Requested By: Dusty Owusu Order Number: [id number] Reading MD: Jose Chau Measurements Intervals [place] Rate: 96 P: 55 [place]: 172 QRS: 20 QRSD: 104 T: 26 QT: 324 QTc: 377 Interpretive Statements SINUS RHYTHM BASELINE ARTIFACT Electronically Signed On 02-10-2018 6:15:21 EDT by Jose Chau
== END 2018-02-08 21:00 | disposition critical access hospital (66) | DRG 871 ==
LOC: EMEROO 07:03 → 2ANU 07:03 → SUATTDRO 10:35 → 2ANU 10:50
PROVIDERS: ADMIT Internal Medicine; ATTEND Internal Medicine